=== PATIENT | female | born 1945 | race Caucasian/White ===

== ENCOUNTER 2020-09-27 08:11 | Day surgery (SDC) | payer MEDICARE ==
[~2020-09-27] VITALS: Ht 162.6 cm; Wt 62.8 kg
[~2020-09-27 08:11] MED LIST: ACETAMINOPHEN 325 MG TABLET PO PRN; ASPI325T20 PO; ATOR80TA PO; CALC-31 PO; EPHEDRINE 50 MG/ML, 1ML IVPush PRN; FENTANYL PF 100 MCG/2ML IV PRN; HYDROmorphone 1 MG/ML, 1ML INJ IVPush PRN; LABETALOL 5MG/ML, 20ML IV PRN; LISI-170 PO; METO-93 PO; MULT-642 PO; ONDANSETRON 2MG/ML, 2ML IVPush PRN; OXYcodone 5 MG/5 ML ORAL.SOL UDC PO PRN; PANT40GR PO; PROMETHAZINE 25 MG/ML, 1ML IVPush PRN; hydrALAzine 20 MG/ML, 1ML IV PRN
[2020-09-27] MEDS ORDERED: LACTATED RINGERS 1,000 ML IV SCH (09:00)
[2020-09-27] MEDS ORDERED: CHLORHEXIDINE 15 ML UDC MM ONE (09:00)
[2020-09-27] MEDS ORDERED: PREMARIN CREAM TP (09:01)
[2020-09-27] MEDS ORDERED: ASPI81TA45 PO (09:01)
[2020-09-27] MEDS ORDERED: CLOP75TA PO (09:01)
[2020-09-27] MEDS ORDERED: LORA10CA PO (09:01)
[2020-09-27] MEDS ORDERED: NITR0.6T4 SL (09:01)
[2020-09-27] MEDS ORDERED: LISI-170 PO (09:01)
[2020-09-27] MEDS ORDERED: EZET10TA70 PO (09:01)
[2020-09-27] MEDS ORDERED: METO25TA35 PO (09:01)
[2020-09-27] MEDS ORDERED: GABA-826 PO (09:01)
[2020-09-27] MEDS ORDERED: VIVISCAL PO (09:05)
[2020-09-27] MEDS ORDERED: ROSU40TA PO (09:05)
[2020-09-27] MEDS ORDERED: VITAMIN D PO (09:05)
[2020-09-27] MEDS ORDERED: SERT50TA PO (09:05)
[2020-09-27 09:09] VITALS: BP 137/80
[2020-09-27] MEDS ORDERED: CHLORHEXIDINE 15 ML UDC ONE (09:13)
[2020-09-27 09:50] LABS: ALANINE AMINOTRANSFERASE 20 U/L (12-78); ALBUMIN 3.3 g/dL (3.4-5.0); ANION GAP 6 mmol/L (5-15); CALCIUM 8.2 mg/dL (8.5-10.1); CHLORIDE 109 mmol/L (98-107); CREATININE 0.78 mg/dL (0.55-1.02)
[2020-09-27 09:52] LABS: ALKALINE PHOSPHATASE 49 U/L (45-117); BILIRUBIN,TOTAL 0.3 mg/dL (0.2-1.0); TOTAL PROTEIN 6.3 g/dL (6.4-8.2)
[2020-09-27] MEDS ORDERED: PROPOFOL 10 MG/ML, 20ML ONE (12:30)
[2020-09-27] MEDS ORDERED: KETOROLAC 30 MG/1 ML ONE (13:30)
[2020-09-27] MEDS ORDERED: ACETAMINOPHEN 650 MG/20.3 ML UDC ONE (13:41)
[2020-09-27] MEDS ORDERED: hydrALAzine 20 MG/ML, 1ML ONE (13:45)
== END 2020-09-27 15:10 | disposition home or self-care (01) ==
LOC: OUT 08:11
PROVIDERS: ATTEND Internal Medicine Geriatric Medicine
DX: K22.710 Barrett's esophagus with low grade dysplasia (principal); K21.9 Gastro-esophageal reflux disease without esophagitis; I25.10 Atherosclerotic heart disease of native coronary artery without angina pectoris; I10 Essential (primary) hypertension; Z20.822 Contact with and (suspected) exposure to COVID-19; Z79.02 Long term (current) use of antithrombotics/antiplatelets; Z79.82 Long term (current) use of aspirin; Z79.899 Other long term (current) drug therapy; Z88.8 Allergy status to other drugs, medicaments and biological substances
CPT/HCPCS: 36415; 43270; 80053; 87635; 93005; J0360; J2704; J7120; J1885